=== PATIENT | female | born 1955 | race Caucasian/White ===

== ENCOUNTER 2018-07-02 10:07 | Inpatient (IN) | payer OTHER ==
[~2018-07-02] VITALS: Ht 152.4 cm; Wt 53.7 kg
[2018-07-02] VITALS (13 sets, daily range): BP systolic 106–121; BP diastolic 60–78; PULSE 88–105; RESP 16–31; Ht 152.4 cm; Wt 53.7 kg
[2018-07-02] MEDS ORDERED: NITROGLYCERIN 2% 1 GM OINT PKT TD STA (10:17)
[2018-07-02] MEDS ORDERED: ASPIRIN 81 MG TAB PO STA (10:17)
[2018-07-02] MEDS ORDERED: NITROGLYCERIN (SL) 0.4 MG TAB SL PRN ×2 (10:30→13:00)
[2018-07-02] MEDS ORDERED: INSU100I12 SQ (11:13)
[2018-07-02] MEDS ORDERED: LISI40TA3 PO (11:13)
[2018-07-02] MEDS ORDERED: GLYB5TAB3 PO (11:13)
[2018-07-02] MEDS ORDERED: ERGO500013 PO (11:14)
[2018-07-02] MEDS ORDERED: MECL-77 PO (11:14)
[2018-07-02] MEDS ORDERED: METF850T13 PO (11:15)
[2018-07-02] MEDS ORDERED: METO-319 PO (11:16)
[2018-07-02] MEDS ORDERED: ASPI81TA50 PO (11:16)
[2018-07-02] MEDS ORDERED: ATOR20TA38 PO (11:17)
[2018-07-02] MEDS ORDERED: LORA10TA3 PO (11:17)
[2018-07-02] MEDS ORDERED: CELE200C PO (11:18)
[2018-07-02] MEDS ORDERED: SITA100T11 PO (11:18)
[2018-07-02] MEDS ORDERED: OMEP40CA6 PO (11:18)
[2018-07-02] MEDS ORDERED: FENO145T37 PO (11:19)
[2018-07-02] MEDS ORDERED: FER325 PO (11:19)
[2018-07-02] MEDS ORDERED: ENOXAPARIN 40 MG/0.4 ML SYG SC ONE (12:00)
[2018-07-02] MEDS ORDERED: ONDANSETRON 4 MG INJ IV PRN ×2 (12:00→13:00)
[2018-07-02] MEDS ORDERED: ACETAMINOPHEN 325 MG TAB PO PRN ×3 (12:00→15:30)
--- NOTE | 2018-07-02 12:08 | ERD ---
ER Documentation Chief Complaint Chief Complaint CHEST PAIN SINCE SUNDAY HPI Patient is a 63-year-old female with hypertension, diabetes, and high cholesterol who presents with chest pain. The patient said that she had a pressure like pain which started on Sunday in the midsternal area. She was sleeping on a pillow at home last night because of shortness of breath. She tried valerian root pill for her pain. Upon review of old medical records this is the patient's first visit to the emergency department. ROS All systems reviewed and are negative except as per history of present illness. Medications Home Meds Reported Medications Fenofibrate Nanocrystallized* (Fenofibrate*) 145 Mg Tablet, 145 MG PO DAILY, TAB 07/02/18 Ferrous Sulfate* (Ferrous Sulfate*) 325 Mg Tabec, 325 MG PO DAILY, TAB 07/02/18 Sitagliptin* (Januvia*) 100 Mg Tablet, 100 MG PO DAILY, #30 TAB 07/02/18 Omeprazole* (Omeprazole*) 40 Mg Capsule.dr, 40 MG PO DAILY, #30 CAP 07/02/18 Celecoxib* (Celebrex*) 200 Mg Capsule, 200 MG PO DAILY, CAP 07/02/18 Atorvastatin Calcium* (Atorvastatin Calcium*) 20 Mg Tablet, 20 MG PO QHS, #30 TAB 07/02/18 Loratadine* (Loratadine*) 10 Mg Tablet, 10 MG PO DAILY, #30 TAB 07/02/18 Aspirin (Aspir-Low) 81 Mg Tablet.dr, 81 MG PO DAILY 07/02/18 Metoprolol Succinate* (Toprol XL*) 50 Mg Tab.er.24h, 50 MG PO DAILY, #30 TAB 07/02/18 Metformin Hcl* (Metformin Hcl*) 850 Mg Tablet, 850 MG PO WITH MEALS, #60 TAB 07/02/18 Meclizine Hcl* (Meclizine Hcl*) 25 Mg Tablet, 25 MG PO DAILY PRN for DIZZINESS, TAB 07/02/18 Ergocalciferol (Vitamin D2) (VITAMIN D2) 50,000 Unit Capsule, 17713 UNIT PO Q7D, CAP 07/02/18 Glyburide* (Glyburide*) 5 Mg Tablet, 5 MG PO BID, #60 TAB 07/02/18 Lisinopril* (Lisinopril*) 40 Mg Tablet, 40 MG PO DAILY, #30 TAB 07/02/18 Insulin Lispro (Humalog Kwikpen U-100) 100 Unit/1 Ml Insuln.pen, 20 UNIT SQ TID, EA 07/02/18 Allergies Allergies: Coded Allergies: No Known Allergy (Unverified , 07/02/18) PMhx/Soc Medical and Surgical Hx: pt denies Surgical Hx History of Surgery: No Anesthesia Reaction: No Hx Neurological Disorder: No Hx Respiratory Disorders: No Hx Cardiac Disorders: Yes (htn, cholesterol) Hx Miscellaneous Medical Probl: Yes (dm) Hx Alcohol Use: No Hx Substance Use: No Hx Tobacco Use: No Smoking Status: Never smoker FmHx Family History: coronary disease Physical Exam Vitals Vital Signs Date Temp Pulse Resp B/P (MAP) Pulse Ox O2 O2 Flow FiO2 Time Delivery Rate 07/02/18 92 20 124/74 94 Nasal 11:09 (91) Cannula 07/02/18 Simple 2 11:09 Mask 07/02/18 98.1 100 18 149/75 98 10:12 (99) Physical Exam Const: No acute distress Head: Atraumatic Eyes: Normal Conjunctiva ENT: Normal External Ears, Nose and Mouth. Neck: Full range of motion. No meningismus. Resp: Clear to auscultation bilaterally Cardio: Regular rate and rhythm, no murmurs Abd: Soft, non tender, non distended. Normal bowel sounds Skin: No petechiae or rashes Back: No midline or flank tenderness Ext: No cyanosis, or edema Neur: Awake and alert Psych: Normal Mood and Affect Result Diagram: 07/02/18 1048 07/02/18 1048 Results 24 hrs Laboratory Tests Test 07/02/18 10:48 White Blood Count 15.1 10^3/ul Red Blood Count 4.36 10^6/ul Hemoglobin 11.1 g/dl Hematocrit 35.9 % Mean Corpuscular Volume 82.3 fl Mean Corpuscular Hemoglobin 25.5 pg Mean Corpuscular Hemoglobin Concent 30.9 g/dl Red Cell Distribution Width 13.6 % Platelet Count 423 10^3/UL Mean Platelet Volume 10.6 fl Immature Granulocytes % 0.400 % Neutrophils % 74.3 % Lymphocytes % 17.7 % Monocytes % 4.8 % Eosinophils % 2.5 % Basophils % 0.3 % Nucleated Red Blood Cells % 0.0 /100WBC Immature Granulocytes # 0.060 10^3/ul Neutrophils # 11.2 10^3/ul Lymphocytes # 2.7 10^3/ul Monocytes # 0.7 10^3/ul Eosinophils # 0.4 10^3/ul Basophils # 0.1 10^3/ul Nucleated Red Blood Cells # 0.0 10^3/ul Sodium Level 141 mmol/L Potassium Level 4.2 mmol/L Chloride Level 103 mmol/L Carbon Dioxide Level 24 mmol/L Anion Gap 14 Blood Urea Nitrogen 19 mg/dl Creatinine 0.69 mg/dl Est Glomerular Filtrat Rate mL/min > 60 mL/min Glucose Level 199 mg/dl Calcium Level 9.8 mg/dl Troponin I 4.540 ng/ml Current Medications Medications Dose Sig/Ankush Start Time Status Last (Trade) Ordered Route PRN Stop Time Admin Dose Reason Admin Aspirin 162 mg ONCE STAT 07/02/18 DC 07/02/18 (Aspirin) PO 10:17 07/02/18 10:38 10:19 1 inch ONCE STAT 07/02/18 DC 07/02/18 Nitroglycerin TD 10:17 07/02/18 10:38 10:19 (Nitroglyceri n 2% Oint) 1 tab Q5M UP TO 3 07/02/18 07/02/18 Nitroglycerin DOSES PRN 10:30 10:38 SL .CHEST (Nitroglyceri PAIN n (Sl Tab) 0.4 Mg) Enoxaparin 50 mg ONCE ONCE 07/02/18 DC 07/02/18 Sodium SC 12:00 07/02/18 12:04 (Lovenox) 12:01 Ondansetron 4 mg ER BRIDGE 07/02/18 HCl (Zofran PRN IV 12:00 07/03/18 Inj) NAUSEA/VOMITI 11:59 NG 650 mg ER BRIDGE 07/02/18 Acetaminophen PRN PO 12:00 07/03/18 (Tylenol .MILD PAIN 11:59 Tab) 1-3 OR TEMP Procedures/MDM EKG #1 read by me: Rate/Rhythm: Regular rate and rhythm at a normal rate Intervals: Normal Impression: ST elevation in aVR with diffuse ST depressions EKG #2 read by me: Rate/Rhythm: Regular rate and rhythm at a normal rate Intervals: Normal Impression: ST elevation in aVR with diffuse ST depressions improved from first EKG Chest x-ray read by radiology. Patient is a 63-year-old female who presents with chest pain. Her EKG was concerning for diffuse ST depressions as well as isolated ST elevation in aVR. There is a potential for left main disease. I spoke with Dr. Ordaz the in terventional help desk operator nutrition aide and we decided that this does not meet STEMI criteria but that should be evaluated sooner rather than later. The patient will be admitted to the care of Dr. Baeza to a telemetry bed. I have given aspirin, nitroglycerin, and Lovenox. Critical Care: Time: 35 minutes excluding all billable procedures. Treatments/Evaluations: Close monitoring and treatment of unstable vital signs, cardiorespiratory, and neurologic status, while maintaining tight balance of fluid, respiratory, and cardiac interventions. Departure Diagnosis: Primary Impression: NSTEMI (non-ST elevated myocardial infarction) Additional Impression: Chest pain Chest pain type: unspecified Qualified Codes: R07.9 - Chest pain, un specified Condition: Serious ASHIA QUIJANO MD Jul 02, 2018 12:08
[2018-07-02] MEDS ORDERED: NACL 0.9% 3 ML SYG IV SCH (13:00)
[2018-07-02] MEDS ORDERED: ZOLPIDEM 5 MG TAB PO PRN (13:00)
[2018-07-02] MEDS: ENOXAPARIN 40 MG/0.4 ML SYG SC SCH (13:00)
--- NOTE | 2018-07-02 13:28 | RADRPT ---
Echocardiogram Report Patient Name: Db TERAN ID: [id number] : 1955 (63y 5m)Study Date: 07/02/2018 1:04:19 PM Gender: FAccession #: [id number] Tech: George Rodriguez [facility] Location: [facility] Ref.Physician: ANGELO GENAO Height(Cm): BSA: Weight(Kg): Quality: AdequateAccount #: Procedures: Echocardiographic Report: Transthoracic echocardiogram with complete 2D, M-Mode, and doppler examination. Indications: NSTEMI. Measurements: 2D/M Mode Doppler Measurement Value Normal Range Measurement Value Normal Range LVIDd 2D 3.9 [ 3.8 - 5.2 ] cm AV Peak Kamron 1.3 [ 100.0 - 170.0 ] cm/sec LVIDs 2D 2.3 [ 2.2 - 3.5 ] cm AV Peak PG 7.0 [ 2.0 - 9.0 ] mmHg LVPWd 2D 1.4 [ 0.6 - 0.9 ] cm LVOT Peak Kamron 1.1 [ 70.0 - 110.0 ] cm/sec IVSd 2D 1.6 [ 0.6 - 0.9 ] cm LVOT Peak PG 5.0 [ 2.0 - 6.0 ] mmHg AoR Diam 2D 2.7 [ 2.3 - 3.1 ] cm MV E Peak Kamron 0.9 [ 60.0 - 130.0 ] cm/sec EDV 2D 66.7 [ 46.0 - 106.0 ] ml MV A Peak Kamron 1.0 [ 100.0 - 120.0 ] cm/sec ESV 2D 18.3 [ 14.0 - 42.0 ] ml MV E/A 0.9 [ 0.8 - 1.5 ] ratio EF 2D 72.6 [ 54.0 - 74.0 ] percent MV Decel Time 183 [ 104 - 258 ] msec LA Dimen 2D 3.8 [ 2.7 - 3.8 ] cm Lat E` Kamron 0.1 [ 10.0 - 15.0 ] cm/sec Lateral E/E` 11.7 [ 1.0 - 2.0 ] ratio Med E` Kamron 0.0 cm/sec MV E/A 0.9 [ 0.8 - 1.5 ] ratio Findings: Left Ventricle: Normal left ventricular systolic function. Normal left ventricular cavity size. Moderate concentric left ventricular hypertrophy. Ejection fraction is visually estimated at 65 %. Tissue Doppler/Mitral Doppler indices are consistent with impaired relaxation (Stage I diastolic dysfunction). Right Ventricle: Normal right ventricular size. Normal right ventricular systolic function. Left Atrium: The left atrium is normal in size. Right Atrium: The right atrium is normal in size. Mitral Valve: Mitral valve leaflets appear mildly thickened. Mild mitral annular calcification. Mild mitral valve regurgitation. Aortic Valve: No significant aortic stenosis or insufficiency. Aortic cusps appear mildly calcified. Tricuspid Valve: Normal appearance and function of the tricuspid valve with trace physiologic regurgitation. Pulmonic Valve: Normal pulmonic valve appearance. Pericardium: Normal pericardium with no significant pericardial effusion. Aorta: Normal aortic root. IVC: Normal size and normal respiratory collapse consistent with normal right atrial pressure. Conclusions: Normal left ventricular systolic function. Normal left ventricular cavity size. Moderate concentric left ventricular hypertrophy. Ejection fraction is visually estimated at 65 %. Tissue Doppler/Mitral Doppler indices are consistent with impaired relaxation (Stage I diastolic dysfunction). Normal right ventricular size. Normal right ventricular systolic function. The left atrium is normal in size. The right atrium is normal in size. Mild mitral valve regurgitation. No significant valvular stenosis or regurgitation seen of remaining visualized valves. Normal pericardium with no significant pericardial effusion. Electronically Signed By: Angelo Genao 2018-07-02 13:26:52 PST
[2018-07-02] MEDS ORDERED: IODIXANOL LOCM 100 ML BTL ONE (13:59)
[2018-07-02] MEDS ORDERED: LIDOCAINE 1% (MDV) 20 ML INJ ONE (13:59)
[2018-07-02] MEDS ORDERED: HEPARIN 1000 UNITS/ML 10 ML INJ ONE (13:59)
[2018-07-02] MEDS ORDERED: FENTAnyl 50 MCG/ML VIAL ONE (13:59)
[2018-07-02] MEDS ORDERED: NITROGLYCERIN (IC) 100 MCG/ML INJ ONE (13:59)
[2018-07-02] MEDS ORDERED: MIDAZOLAM 1 MG/ML 2 ML INJ ONE (13:59)
[2018-07-02] MEDS ORDERED: VERAPAMIL 5 MG INJ ONE (13:59)
[2018-07-02] MEDS ORDERED: IOHEXOL 350MG/ML 50 ML BTL ONE (14:27)
[2018-07-02] MEDS ORDERED: BIVALIRUDIN 250MG /NS 50 ML 50 ML IVPB ONE ×2 (14:27→15:26)
[2018-07-02] MEDS ORDERED: SOD CHLORIDE 0.9% 500 ML ONE (14:27)
[2018-07-02] MEDS ORDERED: TICAGRELOR 90 MG TABLET ONE (14:28)
[2018-07-02] MEDS ORDERED: ASPIRIN 81 MG TAB ONE (14:29)
[2018-07-02] MEDS ORDERED: GLUCAGON 1 MG INJ IM PRN (15:00)
[2018-07-02] MEDS ORDERED: GLUCOSE GEL 15 GRAM TUBE BUCCAL PRN (15:00)
[2018-07-02] MEDS ORDERED: DEXTROSE 50% 50 ML SYRINGE IV PRN ×2 (15:00)
[2018-07-02] MEDS ORDERED: GLUCOSE GEL 15 GRAM TUBE PO PRN ×2 (15:00)
[2018-07-02] MEDS ORDERED: SOD CHLORIDE 0.9% 1,000 ML IV SCH (15:10)
--- NOTE | 2018-07-02 15:19 | OPR ---
Date/Time of Note Date/Time of Note DATE: 07/02/18 TIME: 15:12 Operative Report Procedure Date: Jul 02, 2018 Preoperative Diagnosis Myocardial infarction Postoperative Diagnosis Obstructive coronary artery disease Myocardial infarction Operation/Procedure Performed Left heart catheterization Right and left coronary angiogram Interpretation and supervision of right and left coronary angiogram PCI of the mid circumflex with a placement of a 2.75 x 18 mm Xience drug-eluting stent PCI of the proximal RCA with a placement of a 2.75 x 15 mm Xience drug-eluting stent Left ventricular pressure measurements Right radial artery approach using ultrasound guidance Surgeon see signature line and Dr Clare Anders Press Operator Meat Supervisor Air Conditioning Installer staff Anesthesia Type: MAC Estimated Blood Loss: minimal Transfusion none Specimen None Grafts/Implants none Complications none Pt Condition Post Procedure: stable Procedure Description Findings Hemodynamics LV pressure 133/-14, EDP of 20 Aortic pressure 132/71 Coronary findings Left main is large caliber vessel with no significant disease LAD is a medium caliber vessel with a mid to distal 40% stenosis with possible myocardial bridging in this region Circumflex is a medium caliber vessel with proximal 20% stenosis and mid 99% stenosis RCA is a medium caliber vessel and dominant with a proximal 80% stenosis Description of procedure Patient brought to the Supervisor Air Conditioning Installer after informed consent. Patient prepped and draped as per protocol. Right radial artery access was obtained using ultrasound guidance. A 5/6 [place] sheath was placed in the right radial artery. A 5 [place] catheter was used to cross the aortic valve and left ventricular pressure measurements were obtained as well as pullback. We next engaged the left main and RCA and angiograms were performed. Given the severe disease noted in both vessels in the setting of myocardial infarction, intervention was performed within the same setting. Angiomax was used for anticoagulation. The patient was loaded with aspirin and Brilinta. A VL 3.5 6 [place] guide was used to engaged the left main. The lesion was crossed with a run through wire, predilated and then stented with a 2.75 x 18 mm stent. This was postdilated with the stent delivery system balloon. There was an excellent graft result with JOYCE-3 flow with no evidence of dissection. We next turned our attention to the RCA. A [place] 0.75 guide catheter was used. The lesion was crossed with a run through wire and direct stented with a 2.75 x 15 mm drug-eluting stent. This was postdilated with the stent delivery system b alloon. There was an excellent angiography result with JOYCE-3 flow with no evidence of dissection. All catheters and wires removed. No immediate complications. Recommendations Continue dual antiplatelet therapy for minimum of 1 year to maintain stent p atency. Aggressive risk factor management. Angelo Genao DO Jul 02, 2018 15:19
--- NOTE | 2018-07-02 15:33 | HP ---
DATE OF ADMISSION: 07/02/2018 CHIEF COMPLAINT: Chest pain. HISTORY OF PRESENT ILLNESS: A 63-year-old female with history of hypertension, type 2 diabetes heike portillo and hyperlipidemia presents to emergency room with complaints of chest pain on and off since 3 da ys prior to admission. The patient also reports shortness of breath. Initial evaluation in the [facility] room revealed the troponin of 4.54. A 12-lead EKG showed ST abnormalities. Her chest pain was resolved. PAST MEDICAL HISTORY: 1. Hypertension. 2. Type 2 diabetes mellitus. 3. Hyperlipidemia. MEDICATIONS PRIOR TO ADMISSION: 1. Insulin. 2. Glyburide. 3. Januvia. 4. Lisinopril. 5. Fenofibrate. 6. Lipitor. SOCIAL HISTORY: The patient lives at home. She denies tobacco or alcohol use. PHYSICAL EXAMINATION: GENERAL: Well-developed, well-nourished elderly female who is in no apparent distress. VITAL SIGNS: Stable. She is afebrile. HEENT: Extraocular muscles intact. Pupils are equal and reactive to light bilaterally. Sclerae are anicteric. Oropharynx is clear and moist. NECK: Supple. No JVD, no carotid bruits. LUNGS: Mild crackles at the bases. CARDIAC: Regular rate and rhythm. No murmurs, rubs or gallops. ABDOMEN: Soft, nontender, nondistended, normoactive bowel sounds. EXTREMITIES: No clubbing, cyanosis or edema. NEUROLOGICAL: Grossly nonfocal. LABORATORY DATA: Basic metabolic panel was normal. Troponin was 4.54. White blood cell count was e levated to 15,000, hemoglobin 11.4. DIAGNOSTIC DATA: Chest x-ray showed no acute changes. ASSESSMENT: 1. A 63-year-old female with acute non-ST elevated myocardial infarction. 2. Hypertension. 3. Type 2 diabetes mellitus. 4. Hyperlipidemia. PLAN: 1. Admit to telemetry. 2. Resume selective home medications. 3. Serial troponin. 4. Cardiology consultation was requested. The patient will be evaluated by Dr. Genao. Dictated By: NEREYDA LOZADA/ELINA Conf#: [id number] DID#: [id number] CC: ERNESTO WILSON MD; MIMA GENAO DO;*EndCC*
--- NOTE | 2018-07-02 16:27 | CONS ---
Assessment/Plan Assessment/Plan Hospital Course (Demo Recall) Non-ST elevation myocardial infarction CAD status post PCI to RCA and obtuse marginal Preserved ejection fraction Diabetes Hypertension Dyslipidemia -Patient status post cardiac catheterization with PCI to both obtuse marginal and RCA. -Dual antiplatelet therapy for minimum 1 year to maintain stent patency. I have requested case management involvement to confirm approval of Brilinta -Start statin therapy, beta-keyshawn Consultation Date/Type/Reason Admit Date/Time Jul 02, 2018 at 11:51 Type of Consult Cardiology Reason for Consultation Elevated troponin Date/Time of Note DATE: 07/02/18 TIME: 16:24 Hx of Present Illness This is a 63-year-old female with past medical history of diabetes, hypertension, dyslipidemia who presents with chest pain since Sunday. Sympt oms have been off and on over the past few days but worsening today. There is associated shortness of breath. Laboratory studies emergency room with elevated troponin for this reason, cardiology consult was requested. 12 point review of systems was performed with all pertinent positives and negati ves mentioned above and all else is negative Past Medical History Medical History: diabetes, high cholesterol, hypertension Home Meds Reported Medications Fenofibrate Nanocrystallized* (Fenofibrate*) 145 Mg Tablet, 145 MG PO DAILY, TAB 07/02/18 Ferrous Sulfate* (Ferrous Sulfate*) 325 Mg Tabec, 325 MG PO DAILY, TAB 07/02/18 Sitagliptin* (Januvia*) 100 Mg Tablet, 100 MG PO DAILY, #30 TAB 07/02/18 Omeprazole* (Omeprazole*) 40 Mg Capsule.dr, 40 MG PO DAILY, #30 CAP 07/02/18 Celecoxib* (Celebrex*) 200 Mg Capsule, 200 MG PO DAILY, CAP 07/02/18 Atorvastatin Calcium* (Atorvastatin Calcium*) 20 Mg Tablet, 20 MG PO QHS, #30 TAB 07/02/18 Loratadine* (Loratadine*) 10 Mg Tablet, 10 MG PO DAILY, #30 TAB 07/02/18 Aspirin (Aspir-Low) 81 Mg Tablet.dr, 81 MG PO DAILY 07/02/18 Metoprolol Succinate* (Toprol XL*) 50 Mg Tab.er.24h, 50 MG PO DAILY, #30 TAB 07/02/18 Metformin Hcl* (Metformin Hcl*) 850 Mg Tablet, 850 MG PO WITH MEALS, #60 TAB 07/02/18 Meclizine Hcl* (Meclizine Hcl*) 25 Mg Tablet, 25 MG PO DAILY PRN for DIZZINESS, TAB 07/02/18 Ergocalciferol (Vitamin D2) (VITAMIN D2) 50,000 Unit Capsule, 37251 UNIT PO Q7D, CAP 07/02/18 Glyburide* (Glyburide*) 5 Mg Tablet, 5 MG PO BID, #60 TAB 07/02/18 Lisinopril* (Lisinopril*) 40 Mg Tablet, 40 MG PO DAILY, #30 TAB 07/02/18 Insulin Lispro (Humalog Kwikpen U-100) 100 Unit/1 Ml Insuln.pen, 20 UNIT SQ TID, EA 07/02/18 Medications Current Medications IV Flush (NS 3 ml) 3 ml PER PROTOCOL IV ; Start 07/02/18 at 13:00 Ondansetron HCl (Zofran Inj) 4 mg Q6H PRN IV NAUSEA/VOMITING; Start 07/02/18 at 13:00 Aspirin (Aspirin) 81 mg DAILY PO ; Start 07/03/18 at 09:00 Nitroglycerin (Nitroglycerin (Sl Tab) 0.4 Mg) 1 tab Q5M PRN SL .CHEST PAIN; Start 07/02/18 at 13:00 Acetaminophen (Tylenol Tab) 650 mg Q6H PRN PO .PAIN 1-3 OR TEMP; Start 07/02/18 at 13:00 Zolpidem Tartrate (Ambien) 5 mg QHS PRN PO .INSOMNIA; Start 07/02/18 at 13:00 Enoxaparin Sodium (Lovenox) 40 mg DAILY SC ; Start 07/02/18 at 13:00 Insulin Aspart (Novolog Insulin Pen) NOVOLOG *MODERATE* ALGORITHM WITH MEALS BEDTIME SC ; Start 07/02/18 at 17:35 Miscellaneous Information 1 ea NOTE XX ; Start 07/02/18 at 15:00 Glucose (Glutose) 15 gm Q15M PRN PO DECREASED GLUCOSE; Start 07/02/18 at 15:00 Glucose (Glutose) 22.5 gm Q15M PRN PO DECREASED GLUCOSE; Start 07/02/18 at 15:00 Dextrose (D50w Syringe) 25 ml Q15M PRN IV DECREASED GLUCOSE; Start 07/02/18 at 15:00 Dextrose (D50w Syringe) 50 ml Q15M PRN IV DECREASED GLUCOSE; Start 07/02/18 at 15:00 Glucagon (Glucagen) 1 mg Q15M PRN IM DECREASED GLUCOSE; Start 07/02/18 at 15:00 Glucose (Glutose) 15 gm Q15M PRN BUCCAL DECREASED GLUCOSE; Start 07/02/18 at 15:00 Miscellaneous Information (* Miscellaneous Pharmacy Order) Hold all Metformin ... ONCE XX ; Start 07/02/18 at 15:30; Stop 07/04/18 at 15:29 Ticagrelor (Brilinta) 90 mg BID PO ; Start 07/02/18 at 21:00 Acetaminophen (Tylenol Tab) 650 mg Q4H PRN PO PAIN; Start 07/02/18 at 15:30 Atorvastatin Calcium (Lipitor) 80 mg DAILY@21 PO ; Start 07/02/18 at 21:00 Sodium Chloride 1,000 ml @ 75 mls/hr [id number] IV ; Start 07/02/18 at 15:10; Stop 07/02/18 at 20:09 Metoprolol Tartrate (Lopressor) 25 mg Q8 PO ; Start 07/02/18 at 15:30 Miscellaneous Information (* Miscellaneous Pharmacy Order) Hold all Metformin ... ONCE ONCE XX ; Start 07/02/18 at 16:30; Stop 07/02/18 at 16:31; Status UNV Bivalirudin 50 ml @ 18.795 mls/ hr Q2H40M IVPB ; Start 07/02/18 at 16:21; Stop 07/02/18 at 19:20; Status UNV Allergies: Coded Allergies: No Known Allergy (Unverified , 07/02/18) Past Surgical History Past Surgical Hx: other (Hysterectomy) Social History Alcohol Use: none Smoking Status: Never smoker Exam/Review of Systems Vital Signs Vitals Vital Signs Date Temp Pulse Resp B/P (MAP) Pulse Ox O2 O2 Flow FiO2 Time Delivery Rate 07/02/18 92 18 129/72 97 Nasal 13:42 (91) Cannula 07/02/18 2 11:09 07/02/18 98.1 10:12 Exam Constitutional: alert, oriented, well developed Head: normocephalic Respiratory: clear to auscultation, normal air movement Cardiovascular: regular rate and rhythm (S1-S2 heard) Gastrointestinal: soft, non-tender, bowel sounds Extremities: other (No significant edema) Labs Result Diagram: 07/02/18 1048 07/02/18 1048 Results 24hrs Laboratory Tests Test 07/02/18 10:48 White Blood Count 15.1 H Red Blood Count 4.36 Hemoglobin 11.1 L Hematocrit 35.9 L Mean Corpuscular Volume 82.3 Mean Corpuscular Hemoglobin 25.5 L Mean Corpuscular Hemoglobin Concent 30.9 L Red Cell Distribution Width 13.6 Platelet Count 423 H Mean Platelet Volume 10.6 H Immature Granulocytes % 0.400 Neutrophils % 74.3 Lymphocytes % 17.7 Monocytes % 4.8 Eosinophils % 2.5 Basophils % 0.3 Nucleated Red Blood Cells % 0.0 Immature Granulocytes # 0.060 H Neutrophils # 11.2 H Lymphocytes # 2.7 Monocytes # 0.7 Eosinophils # 0.4 Basophils # 0.1 Nucleated Red Blood Cells # 0.0 Sodium Level 141 Potassium Level 4.2 Chloride Level 103 Carbon Dioxide Level 24 Anion Gap 14 H Blood Urea Nitrogen 19 Creatinine 0.69 Est Glomerular Filtrat Rate mL/min > 60 Glucose Level 199 Calcium Level 9.8 Troponin I 4.540 *H Imaging Imaging ECG inferolateral ST depressions, sinus rhythm Medications Medications Current Medications IV Flush (NS 3 ml) 3 ml PER PROTOCOL IV ; Start 07/02/18 at 13:00 Ondansetron HCl (Zofran Inj) 4 mg Q6H PRN IV NAUSEA/VOMITING; Start 07/02/18 at 13:00 Aspirin (Aspirin) 81 mg DAILY PO ; Start 07/03/18 at 09:00 Nitroglycerin (Nitroglycerin (Sl Tab) 0.4 Mg) 1 tab Q5M PRN SL .CHEST PAIN; Start 07/02/18 at 13:00 Acetaminophen (Tylenol Tab) 650 mg Q6H PRN PO .PAIN 1-3 OR TEMP; Start 07/02/18 at 13:00 Zolpidem Tartrate (Ambien) 5 mg QHS PRN PO .INSOMNIA; Start 07/02/18 at 13:00 Enoxaparin Sodium (Lovenox) 40 mg DAILY SC ; Start 07/02/18 at 13:00 Insulin Aspart (Novolog Insulin Pen) NOVOLOG *MODERATE* ALGORITHM WITH MEALS BEDTIME SC ; Start 07/02/18 at 17:35 Miscellaneous Information 1 ea NOTE XX ; Start 07/02/18 at 15:00 Glucose (Glutose) 15 gm Q15M PRN PO DECREASED GLUCOSE; Start 07/02/18 at 15:00 Glucose (Glutose) 22.5 gm Q15M PRN PO DECREASED GLUCOSE; Start 07/02/18 at 15:00 Dextrose (D50w Syringe) 25 ml Q15M PRN IV DECREASED GLUCOSE; Start 07/02/18 at 15:00 Dextrose (D50w Syringe) 50 ml Q15M PRN IV DECREASED GLUCOSE; Start 07/02/18 at 15:00 Glucagon (Glucagen) 1 mg Q15M PRN IM DECREASED GLUCOSE; Start 07/02/18 at 15:00 Glucose (Glutose) 15 gm Q15M PRN BUCCAL DECREASED GLUCOSE; Start 07/02/18 at 15:00 Miscellaneous Information (* Miscellaneous Pharmacy Order) Hold all Metformin ... ONCE XX ; Start 07/02/18 at 15:30; Stop 07/04/18 at 15:29 Ticagrelor (Brilinta) 90 mg BID PO ; Start 07/02/18 at 21:00 Acetaminophen (Tylenol Tab) 650 mg Q4H PRN PO PAIN; Start 07/02/18 at 15:30 Atorvastatin Calcium (Lipitor) 80 mg DAILY@21 PO ; Start 07/02/18 at 21:00 Sodium Chloride 1,000 ml @ 75 mls/hr [id number] IV ; Start 07/02/18 at 15:10; Stop 07/02/18 at 20:09 Metoprolol Tartrate (Lopressor) 25 mg Q8 PO ; Start 07/02/18 at 15:30 Miscellaneous Information (* Miscellaneous Pharmacy Order) Hold all Metformin ... ONCE ONCE XX ; Start 07/02/18 at 16:30; Stop 07/02/18 at 16:31; Status UNV Bivalirudin 50 ml @ 18.795 mls/ hr Q2H40M IVPB ; Start 07/02/18 at 16:21; Stop 07/02/18 at 19:20; Status Angelo Armando DO Jul 02, 2018 16:27
[2018-07-02] MEDS: METOPROLOL 25 MG TAB PO SCH ×2 (16:38→22:03)
[2018-07-02] MEDS: BIVALIRUDIN 250MG /NS 50 ML 50 ML IVPB SCH ×2 (16:50→19:01)
[2018-07-02] MEDS: INSULIN ASPART [NOVOLOG] 3 ML PEN SC SCH ×2 (17:35→21:12)
[2018-07-02] MEDS ORDERED: ATORVASTATIN 80 MG TAB PO SCH (21:00)
[2018-07-02] MEDS: TICAGRELOR 90 MG TABLET PO SCH (21:12)
[2018-07-03] VITALS (16 sets, daily range): BP systolic 112–182; BP diastolic 46–136; PULSE 86–100; RESP 15–31
[2018-07-03] MEDS ORDERED: ACCU-CHEK XX SCH (02:00)
[2018-07-03] MEDS: METOPROLOL 25 MG TAB PO SCH (05:13)
[2018-07-03] MEDS: TICAGRELOR 90 MG TABLET PO SCH (08:40)
[2018-07-03] MEDS: ENOXAPARIN 40 MG/0.4 ML SYG SC SCH (08:41)
[2018-07-03] MEDS: INSULIN ASPART [NOVOLOG] 3 ML PEN SC SCH ×2 (08:42→12:22)
[2018-07-03] MEDS ORDERED: ASPIRIN 81 MG TAB PO SCH (09:00)
[2018-07-03] MEDS ORDERED: METOPROLOL 25 MG TAB PO ONE (11:00)
[2018-07-03] MEDS ORDERED: INSULIN ASPART [NOVOLOG] 3 ML PEN SC SCH (11:30)
[2018-07-03] MEDS ORDERED: LISI-313 PO (11:33)
[2018-07-03] MEDS ORDERED: TICA90TA PO (11:33)
[2018-07-03] MEDS ORDERED: ATOR-2 PO (11:33)
--- NOTE | 2018-07-03 11:34 | PDOCDIS ---
Discharge Instructions CONDITION [id number] Patient Condition: Yzioo9v Good HOME CARE INSTRUCTIONS: [id number] Diet Instructions: Evfyp5d [id number] Activity Restrictions: [id number] Slowly Increase Activity Avoid heavy lifting FOLLOW UP/APPOINTMENTS Follow-up Plan pcp [address] Genao 1 week NEREYDA PEREZ MD Jul 03, 2018 11:34
--- NOTE | 2018-07-03 12:51 | CONS ---
Assessment/Plan Assessment/Plan Hospital Course (Demo Recall) Non-ST elevation myocardial infarction CAD status post PCI to RCA and obtuse marginal Preserved ejection fraction Diabetes Hypertension Dyslipidemia -Patient status post cardiac catheterization with PCI to both obtuse marginal and RCA. -Dual antiplatelet therapy for minimum 1 year to maintain stent patency. I have requested case management involvement to confirm approval of Brilinta. Patient cannot be discharged until approval of Brilinta and family has obtained medication -Increased dose of beta-keyshawn, continue statin therapy -I have examined the patient in detail regarding importance of compliance with dual antiplatelet therapy via experimental outboard motors mechanic to prevent stent thrombosis. -Once Brilinta is approved and physically obtained by the patient/family, patient could be discharged Consultation Date/Type/Reason Admit Date/Time Jul 02, 2018 at 11:51 Initial Consult Date Type of Consult Cardiology Date/Time of Note DATE: 07/03/18 TIME: 12:49 24 HR Interval Summary Free Text/Dictation Denies chest pain, shortness of breath or palpitations at rest or with exertion Exam/Review of Systems Vital Signs Vitals Vital Signs Date Temp Pulse Resp B/P (MAP) Pulse Ox O2 O2 Flow FiO2 Time Delivery Rate 07/03/18 86 12:00 07/03/18 20 120/46 96 Room Air 10:03 (70) 07/03/18 98.7 08:00 07/02/18 2 11:09 Intake and Output 07/02/18 07/02/18 07/03/18 1515:00 23:00 07:00 IntakeIntake Total 1226.385 ml 660 ml OutputOutput Total 850 ml 700 ml BalanceBalance 376.385 ml -40 ml Exam Constitutional: alert, oriented (No apparent distress) Neck: supple Respiratory: clear to auscultation, normal air movement Cardiovascular: regular rate and rhythm (S1-S2 heard) Gastrointestinal: soft, non-tender, bowel sounds Extremities: other (+2 right radial pulse, no hematoma) Labs Result Diagram: 07/03/18 0445 07/03/18 0445 Results 24hrs Laboratory Tests Test 07/02/18 16:12 07/02/18 16:26 07/02/18 16:40 07/02/18 17:58 Bedside Glucose 66 L 71 74 179 Test 07/02/18 21:10 07/03/18 01:59 07/03/18 04:45 07/03/18 08:40 Bedside Glucose 294 H 272 H 310 H White Blood Count 12.3 H Red Blood Count 3.97 L Hemoglobin 10.3 L Hematocrit 32.6 L Mean Corpuscular Volume 82.1 Mean Corpuscular 25.9 L Hemoglobin Mean Corpuscular 31.6 L Hemoglobin Concent Red Cell Distribution 13.7 Width Platelet Count 382 Mean Platelet Volume 10.8 H Immature Granulocytes % 0.500 H Neutrophils % 70.3 Lymphocytes % 18.8 Monocytes % 8.6 Eosinophils % 1.5 Basophils % 0.3 Nucleated Red Blood 0.0 Cells % Immature Granulocytes # 0.060 H Neutrophils # 8.7 H Lymphocytes # 2.3 Monocytes # 1.1 H Eosinophils # 0.2 Basophils # 0.0 Nucleated Red Blood 0.0 Cells # Sodium Level 140 Potassium Level 4.2 Chloride Level 107 Carbon Dioxide Level 23 Anion Gap 10 Blood Urea Nitrogen 12 Creatinine 0.57 Est Glomerular Filtrat > 60 Rate mL/min Glucose Level 261 H Hemoglobin A1c 7.5 H Calcium Level 9.2 Triglycerides Level 277 H Cholesterol Level 162 LDL Cholesterol, 73 Calculated HDL Cholesterol 34 L Cholesterol/HDL Ratio 4.7 Test 07/03/18 12:14 Bedside Glucose 270 H Medications Medications Current Medications IV Flush (NS 3 ml) 3 ml PER PROTOCOL IV ; Start 07/02/18 at 13:00 Ondansetron HCl (Zofran Inj) 4 mg Q6H PRN IV NAUSEA/VOMITING; Start 07/02/18 at 13:00 Aspirin (Aspirin) 81 mg DAILY PO Last administered on 07/03/18at 08:38; Admin Dose 81 MG; Start 07/03/18 at 09:00 Nitroglycerin (Nitroglycerin (Sl Tab) 0.4 Mg) 1 tab Q5M PRN SL .CHEST PAIN; St art 07/02/18 at 13:00 Acetaminophen (Tylenol Tab) 650 mg Q6H PRN PO .PAIN 1-3 OR TEMP Last administer ed on 07/02/18at 16:38; Admin Dose 650 MG; Start 07/02/18 at 13:00 Zolpidem Tartrate (Ambien) 5 mg QHS PRN PO .INSOMNIA; Start 07/02/18 at 13:00 Enoxaparin Sodium (Lovenox) 40 mg DAILY SC Last administered on 07/03/18at 08:41; Admin Dose 40 MG; Start 07/02/18 at 13:00 Insulin Aspart (Novolog Insulin Pen) NOVOLOG *MODERATE* ALGORITHM WITH MEALS BEDTIME SC Last administered on 07/03/18at 12:22; Admin Dose 8 UNIT; Start 07/02/18 at 17:35 Miscellaneous Information 1 ea NOTE XX ; Start 07/02/18 at 15:00 Glucose (Glutose) 15 gm Q15M PRN PO DECREASED GLUCOSE; Start 07/02/18 at 15:00 Glucose (Glutose) 22.5 gm Q15M PRN PO DECREASED GLUCOSE; Start 07/02/18 at 15:00 Dextrose (D50w Syringe) 25 ml Q15M PRN IV DECREASED GLUCOSE; Start 07/02/18 at 15:00 Dextrose (D50w Syringe) 50 ml Q15M PRN IV DECREASED GLUCOSE; Start 07/02/18 at 15:00 Glucagon (Glucagen) 1 mg Q15M PRN IM DECREASED GLUCOSE; Start 07/02/18 at 15:00 Glucose (Glutose) 15 gm Q15M PRN BUCCAL DECREASED GLUCOSE; Start 07/02/18 at 15:00 Miscellaneous Information (* Miscellaneous Pharmacy Order) Hold all Metformin ... ONCE XX ; Start 07/02/18 at 15:30; Stop 07/04/18 at 15:29 Ticagrelor (Brilinta) 90 mg BID PO Last administered on 07/03/18at 08:40; Admin Dose 90 MG; Start 07/02/18 at 21:00 Acetaminophen (Tylenol Tab) 650 mg Q4H PRN PO PAIN; Start 07/02/18 at 15:30 Atorvastatin Calcium (Lipitor) 80 mg DAILY@21 PO Last administered on 07/02/18at 21:11; Admin Dose 80 MG; Start 07/02/18 at 21:00 Miscellaneous Information (* Miscellaneous Pharmacy Order) Hold all Metformin ... ONCE XX ; Start 07/02/18 at 16:30; Stop 07/04/18 at 16:29 Influenza Virus Vaccine Quadrival (Fluzone) 0.5 ml ONCE ONCE IM* ; Start 07/05/18 at 09:00; Stop 07/05/18 at 09:01 Diagnostic Test (Pha) (Accu-Chek) 1 ea 02 XX Last administered on 07/03/18at 02:00; Admin Dose 1 EA; Start 07/03/18 at 02:00 Metoprolol Tartrate (Lopressor) 50 mg BID PO ; Start 07/03/18 at 21:00 Lisinopril (Zestril) 2.5 mg DAILY PO ; Start 07/04/18 at 09:00 Insulin Glargine (Lantus) 10 units DAILY@2000 SC ; Start 07/03/18 at 20:00 Insulin Aspart (Novolog Insulin Pen) 2 unit AC MEALS SC ; Start 07/03/18 at 11:30 Angelo Genao DO Jul 03, 2018 12:51
--- NOTE | 2018-07-03 19:43 | DS ---
DATE OF ADMISSION: 07/02/2018 DATE OF DISCHARGE: 07/03/2018 DISCHARGE DIAGNOSES: 1. Acute non-ST elevation myocardial infarction. 2. Status post percutaneous coronary intervention and stent placement to the mid circumflex artery. 3. Status post percutaneous coronary intervention and stent placement to the proximal RCA with drug- eluting stent. 4. Hypertension, well controlled. 5. Type 2 diabetes mellitus. 6. Hyperlipidemia. HOSPITAL COURSE: A 63-year-old female with history of hypertension, type 2 diabetes mellitus and hyp erlipidemia, presented to emergency room with complaint of chest pain on and off for the last 3 days prior to admission. The patient also reported shortness of breath. Initial troponin was 4.54. She was diagnosed with acute non-STEMI. The patient was seen in consultation by Dr. Genao. The patient was taken to the photo lab manager on the day of admission. She underwent PCI and stent placement with drug- eluting stent to mid circumflex and proximal RCA. There were no intraoperative or postoperative comp lications. The patient remained stable throughout the hospitalization. There were no further chest pains. Hemo globin A1c was 7.5. She was seen by the music educator. I resumed her oral hypoglycemics as well as insulin. I encouraged her to adhere to a diabetic and cardiac diet. The patient is in stable condition for discharge. This was cleared by Dr. Genao. MEDICATIONS ON DISCHARGE: 1. Aspirin 81 mg daily. 2. Fenofibrate 145 mg daily. 3. Glyburide 5 mg b.i.d. 4. Ferrous sulfate 325 mg daily. 5. Insulin 20 units 3 times daily. 6. Loratadine 10 mg daily. 7. Meclizine 25 mg as needed. 8. Metformin 850 mg with meals. 9. Toprol-XL 50 mg daily. 10. Omeprazole 40 mg daily. 11. Januvia 100 mg daily. 12. Lipitor 80 mg daily. 13. Lisinopril 5 mg daily. 14. Brilinta 90 mg b.i.d. Follow up with PCP in 1 week. Follow up with Dr. Genao in 1 week. Dictated By: NEREYDA LOZADA/NTS Conf#: [id number] DID#: [id number] CC: ERNESTO WILSON MD; MIMA GENAO DO;*End*
[2018-07-03] MEDS ORDERED: INSULIN GLARGINE [LANTus] (100 UNITS/ML) SYG SC SCH (20:00)
[2018-07-03] MEDS ORDERED: METOPROLOL 50 MG TAB PO SCH (21:00)
--- NOTE | 2018-07-04 08:42 | RADRPT ---
Vent Rate: 103 bpm RR Interval: 0 msec [place] Interval: 124 msec QRS Duration: 76 msec QT Interval: 362 msec QTC Interval: 474 msec P-R-T [place]: 64 - 83 - 0 degrees Sinus tachycardia Marked ST abnormality, possible inferolateral subendocardial injury Abnormal ECG Electronically Signed By: Ren Butler
[2018-07-04] MEDS ORDERED: LISINOPRIL 5 MG TAB PO SCH (09:00)
[2018-07-05] MEDS ORDERED: INFLUENZA VIRUS VACCINE 0.5 ML (DISPENSING) IM* ONE (09:00)
== END 2018-07-03 13:53 | disposition home health service (06) | DRG 247 ==
LOC: E/R 10:07 → REC 11:51 → EDBEDREQ 12:28 → CANRESERV 13:20 → ICU 15:48
PROVIDERS: ADMIT Internal Medicine; ATTEND Internal Medicine
PROC: 027135Z Dilation of Coronary Artery, Two Arteries with Two Drug-eluting Intraluminal Devices, Percutaneous Approach (ICD-10-PCS; principal; 2018-07-02 12:30)
PROC: 4A023N7 Measurement of Cardiac Sampling and Pressure, Left Heart, Percutaneous Approach (ICD-10-PCS; 2018-07-02 12:30)
DX: I21.4 Non-ST elevation (NSTEMI) myocardial infarction (principal); I25.119 Atherosclerotic heart disease of native coronary artery with unspecified angina pectoris; E11.9 Type 2 diabetes mellitus without complications; I10 Essential (primary) hypertension; E78.5 Hyperlipidemia, unspecified
CPT/HCPCS: 71045; 80048; 80061; 82962; 83036; 84484; 85025; 87040; 87081; 92928; 92929; 93005; 93306; 93458; C1725; C1876; C1887; J0583; J1644; J1650; J1815; J2250; J3010; J7040; Q9967

== ENCOUNTER 2018-07-18 13:26 | Emergency (ER) | payer OTHER ==
[~2018-07-18] VITALS: Ht 157.5 cm; Wt 61.4 kg
[~2018-07-18 13:26] MED LIST: ASPI81TA50 PO; ATOR-2 PO; ERGO500013 PO; FENO145T37 PO; FER325 PO; GLYB5TAB3 PO; INSU100I12 SQ; LISI-313 PO; LORA10TA3 PO; MECL-77 PO; METF850T13 PO; METO-319 PO; OMEP40CA6 PO; SITA100T11 PO; TICA90TA PO
[2018-07-18 13:58] VITALS: Ht 157.5 cm; Wt 61.4 kg
[2018-07-18] MEDS ORDERED: PHEN-538 PO (17:51)
[2018-07-18] MEDS ORDERED: NITR-58 PO (17:51)
[2018-07-18] MEDS ORDERED: PHENAZOPYRIDINE 100 MG TAB PO ONE (18:00)
[2018-07-18] MEDS ORDERED: NITROFURANTOIN (SR) 100 MG CAP PO ONE (18:00)
[2018-07-18 18:43] VITALS: BP 148/73; PULSE 77; RESP 16
--- NOTE | 2018-07-18 21:38 | ERD ---
ER Documentation Chief Complaint Chief Complaint R 881, BLOOD IN URINE X2 DAYS HPI Patient is a 63-year-old female with coronary disease, hypertension, and diabetes who presents with blood in the urine. The symptoms started yesterday at 1 AM. The patient was brought in by ambulance. She has felt discomfort with urination. She has no fevers. She was admitted recently for an NSTEMI and had a stent placed but does not know what medications she is on post stent. ROS All systems reviewed and are negative except as per history of present illness. Medications Home Meds Active Scripts Phenazopyridine Hcl* (Pyridium*) 200 Mg Tab, 200 MG PO TID PRN for URINARY PAIN, #6 TAB Prov:ASHIA QUIJANO MD 07/18/18 Nitrofurantoin Monohyd Macrocr* (Macrobid*) 100 Mg Capsr, 100 MG PO BID for 7 Days, CAP Prov:ASHIA QUIJANO MD 07/18/18 Ticagrelor* (Brilinta*) 90 Mg Tablet, 90 MG PO BID for 30 Days, TAB 5 Refills Prov:NEREYDA PEREZ MD 07/03/18 Lisinopril* (Lisinopril*) 5 Mg Tablet, 5 MG PO DAILY for 30 Days, TAB Prov:NEREYDA PEREZ MD 07/03/18 Atorvastatin* (Atorvastatin*) 80 Mg Tablet, 80 MG PO DAILY@21 for 30 Days, TAB Prov:NEREYDA PEREZ MD 07/03/18 Reported Medications Fenofibrate Nanocrystallized* (Fenofibrate*) 145 Mg Tablet, 145 MG PO DAILY, TAB 07/02/18 Ferrous Sulfate* (Ferrous Sulfate*) 325 Mg Tabec, 325 MG PO DAILY, TAB 07/02/18 Sitagliptin* (Januvia*) 100 Mg Tablet, 100 MG PO DAILY, #30 TAB 07/02/18 Omeprazole* (Omeprazole*) 40 Mg Capsule.dr, 40 MG PO DAILY, #30 CAP 07/02/18 Loratadine* (Loratadine*) 10 Mg Tablet, 10 MG PO DAILY, #30 TAB 07/02/18 Aspirin (Aspir-Low) 81 Mg Tablet.dr, 81 MG PO DAILY 07/02/18 Metoprolol Succinate* (Toprol XL*) 50 Mg Tab.er.24h, 50 MG PO DAILY, #30 TAB 07/02/18 Metformin Hcl* (Metformin Hcl*) 850 Mg Tablet, 850 MG PO WITH MEALS, #60 TAB 07/02/18 Meclizine Hcl* (Meclizine Hcl*) 25 Mg Tablet, 25 MG PO DAILY PRN for DIZZINESS, TAB 07/02/18 Ergocalciferol (Vitamin D2) (VITAMIN D2) 50,000 Unit Capsule, 58479 UNIT PO Q7D, CAP 07/02/18 Glyburide* (Glyburide*) 5 Mg Tablet, 5 MG PO BID, #60 TAB 07/02/18 Insulin Lispro (Humalog Kwikpen U-100) 100 Unit/1 Ml Insuln.pen, 20 UNIT SQ TID, EA 07/02/18 Allergies Allergies: Coded Allergies: No Known Allergy (Unverified , 07/18/18) PMhx/Soc History of Surgery: Yes (STENT ) Anesthesia Reaction: No Hx Neurological Disorder: No Hx Respiratory Disorders: No Hx Cardiac Disorders: Yes (HTN , High Cholesterol) Hx Psychiatric Problems: No Hx Miscellaneous Medical Probl: Yes (DM , GERD ) Hx Alcohol Use: Yes Hx Substance Use: No Hx Tobacco Use: Yes Smoking Status: Current some day smoker FmHx Family History: diabetes Physical Exam Vitals Vital Signs Date Temp Pulse Resp B/P (MAP) Pulse Ox O2 O2 Flow FiO2 Time Delivery Rate 07/18/18 98.1 77 16 148/73 99 Room Air 18:43 (98) 07/18/18 98.5 84 16 153/71 99 13:58 (98) Physical Exam Const: No acute distress Head: Atraumatic Eyes: Normal Conjunctiva ENT: Normal External Ears, Nose and Mouth. Neck: Full range of motion. No meningismus. Resp: Clear to auscultation bilaterally Cardio: Regular rate and rhythm, no murmurs Abd: Soft, non tender, non distended. Normal bowel sounds Skin: No petechiae or rashes Back: No midline or flank tenderness Ext: No cyanosis, or edema Neur: Awake and alert Psych: Normal Mood and Affect Results 24 hrs Laboratory Tests Test 07/18/18 16:42 Urine Color SOUMYA Urine Clarity CLOUDY Urine pH 6.0 Urine Specific [place] 1.026 Urine Ketones TRACE mg/dL Urine Nitrite POSITIVE mg/dL Urine Bilirubin NEGATIVE mg/dL Urine Urobilinogen NEGATIVE mg/dL Urine Leukocyte Esterase 1+ Chrissy/ul Urine Microscopic RBC > 182 /HPF Urine Microscopic WBC 119 /HPF Urine Bacteria MANY /HPF Urine Hemoglobin 3+ mg/dL Urine Glucose 3+ mg/dL Urine Total Protein 1+ mg/dl Current Medications Medications Dose Sig/Ankush Start Time Status Last (Trade) Ordered Route PRN Stop Time Admin Dose Reason Admin 100 mg ONCE ONCE 07/18/18 DC 07/18/18 Nitrofurantoi PO 18:00 18:34 n 07/18/18 18:01 Macrocrystals (Macrobid) 200 mg ONCE ONCE 07/18/18 DC 07/18/18 Phenazopyridi PO 18:00 18:34 ne HCl 07/18/18 18:01 (Pyridium) Procedures/MDM Urinalysis positive for infection. Patient is a 63-year-old female who presents with hematuria. The patient was found to have acute cystitis and I believe the patient likely has hematuria because of hemorrhagic cystitis. She is otherwise well-appearing without fever and I doubt sepsis. The patient will be discharged with a prescription for Macrobid and Pyridium. The patient will be discharged for 1 week of treatment and will need to follow-up closely with her primary doctor within 24-48 hours for reevaluation. Departure Diagnosis: Primary Impression: Cystitis Additional Impression: Hematuria Hematuria type: unspecified type Qualified Codes: R31.9 - Hematuria, unspecified Condition: Fair Patient Instructions: Cystitis, Hematuria Referrals: Your doctor Additional Instructions: Call your primary care doctor TOMORROW for an appointment during the next 1-2 days.See the doctor sooner or return here if your condition worsens before your appointment time. ASHIA QUIJANO MD Jul 18, 2018 21:38
== END 2018-07-18 18:46 | disposition home or self-care (01) ==
LOC: E/R 13:26
DX: N30.91 Cystitis, unspecified with hematuria (principal); I10 Essential (primary) hypertension; E11.9 Type 2 diabetes mellitus without complications; I25.10 Atherosclerotic heart disease of native coronary artery without angina pectoris; F17.210 Nicotine dependence, cigarettes, uncomplicated; Z79.82 Long term (current) use of aspirin; Z79.4 Long term (current) use of insulin; Z98.61 Coronary angioplasty status
CPT/HCPCS: 81001; Z7502; Z7610; 99283